=== PATIENT | male | born 2005 | race Two or more races ===

== ENCOUNTER 2024-08-03 16:35 | Emergency (ER) | payer OTHER ==
[~2024-08-03] VITALS: Ht 177.8 cm; Wt 78.0 kg
[2024-08-03 16:56] VITALS: PULSE 75; RESP 16; TEMP 98.6; O2SAT 98
[2024-08-03] MEDS: SODIUM CHLORIDE 0.9% 1,000 ML IV ONE (17:25)
[2024-08-03 17:33] LABS: Basophils # (auto) 0 10 ^3/uL (0-0.2); Basophils % (auto) 0.3 % (0.0-2.0); Eosinophils # (auto) 0 10 ^3/uL (0-0.8); Eosinophils % (auto) 0.5 % (0.0-7.0); Hematocrit 45.9 % (41.0-53.0); Hemoglobin 15.5 g/dL (13.5-17.5); Lymphocytes # (auto) 0.6 10 ^3/uL (0.4-5.4); Lymphocytes % (auto) 6.4 % (10.0-50.0); Mean Corpuscular Hemoglobin 28.9 pg (28.0-32.0); Mean Corpuscular Hgb Conc. 33.8 g/dL (32.0-36.0); Mean Corpuscular Volume 85.4 fL (80.0-100.0); Monocytes # (auto) 0.6 10 ^3/uL (0-1.3); Monocytes % (auto) 6.6 % (0.0-12.0); Neutrophils # (auto) 8.3 10 ^3/uL (1.6-8.6); Neutrophils % (auto) 86.2 % (37.0-80.0); Nucleated Red Blood Cells % 0.2 %; Platelet Count (auto) 257 10^3/uL (140-450); Red Blood Cells 5.37 10^6/uL (4.5-5.90); Red Cell Distribution Width 13.2 % (11.8-14.3); White Blood Cell 9.6 10^3/uL (4.4-10.8)
[2024-08-03 17:43] LABS: Chloride 104 mmol/L (98-107); Potassium 4.7 mmol/L (3.5-5.1); Sodium 137 mmol/L (136-145)
[2024-08-03 17:44] LABS: Anion Gap 9 (5-15); Carbon Dioxide 24 mmol/L (20-31)
[2024-08-03 17:49] LABS: Glucose 93 mg/dL (74-106)
[2024-08-03 17:50] LABS: BUN/Creatinine Ratio 12.9 (10.0-20.0); Blood Alcohol 3.6 mg/dL (<10); Blood Urea Nitrogen 17 mg/dL (9-23)
[2024-08-03 17:57] LABS: Calcium 10.5 mg/dL (8.7-10.4)
--- NOTE | 2024-08-03 18:13 | ED.PDOC ---
HPI (NEURO) HPI Comments 19 y.o male presents to the ED via EMS for an evaluation of an unwitnessed seizure episode today. Patient is unable to recall anything and all he can remember is being at work. Per triage note, patient was on the phone with girlfriend when seizure occurred. At this time no family or girlfriend is at bedside. Initially patient was post-ictal upon ED arrival but is now alert and oriented x 4. He reports one previous seizure 2 months ago and is in the process of being worked up by a neurologist. Patient does complain of a generalized headache and has positive oral trauma due to bitting the right side of his tongue. No chest pain, SOB, nausea, vomiting, vision changes, or dizziness reported. Patient denies any alcohol use but does use marijuana and vapes tobacco. Chief Complaint: Seizure Time Seen by MD: 17:05 Primary Care Provider: UNKNOWN Reviewed Notes: Nurses Notes, Pier Hand Helper Notes, Medications, Allergies Information Source: Patient Mode of Arrival: EMS Severity: Moderate Headache Severity: Moderate Duration: Since onset Seizure Location: Generalized Onset: At rest Circumstances: Spontaneous Before: Normal During: LOC After: Normal Mentation History of: Other (previosu one episode of seizure no hx) Associated Signs and Symptoms: Headache Past Medical History Past Medical History (Other): One Prior seizure Surgical History: Denies all surgeries Family History Family History: Reviewed,noncontributory to illness Social History Smoker: Cigarettes Alcohol: Denies ETOH Use Drugs: Marijuana Lives In: Home Constitutional: denies: chills, diaphoresis, fatigue, fever, malaise, sweats, weakness, others EENTM: denies: blurred vision, double vision, ear bleeding, ear discharge, ear drainage, ear pain, ear ringing, eye pain, eye redness, hearing loss, mouth pain, mouth swelling, nasal discharge, nose bleeding, nose congestion, nose pain, photophobia, tearing, throat pain, throat swelling, voice changes, others Respiratory: denies: cough, hemoptysis, orthopnea, SOB at rest, shortness of breath, SOB with excertion, stridor, wheezing, others Cardiovascular: denies: chest pain, dizzy spells, diaphoresis, Dyspnea on exertion, edema, irregular heart beat, left arm pain, lightheadedness, palpitations, PND, syncope, others Gastrointestinal: denies: abdomen distended, abdominal pain, blood streaked bowels, constipated, diarrhea, dysphagia, difficulty swallowing, hematemesis, melena, nausea, poor appetite, poor fluid intake, rectal bleeding, rectal pain, vomiting, others Genitourinary: denies: burning, dysuria, flank pain, frequency, hematuria, inco ntinence, penile discharge, penile sore, pain, testicle pain, testicle swelling, urgency, others Neurological: reports: headache, seizure; denies: dizziness, fainting, left sided numbness, left sided weakness, numbness, paresthesia, pre-existing deficit, right sided numbness, right sided weakness, speech problems, tingling, tremors, weakness, others Musculoskeletal: denies: back pain, gout, joint pain, joint swelling, muscle pain, muscle stiffness, neck pain, others Integumetry: denies: bruises, change in color, change in hair/nails, dryness, laceration, lesions, lumps, rash, wounds, others Allergic/Immunocompromised: denies: Difficulty Healing, Frequent Infections, Hives, Itching, others Hematologic/Lymphatic: denies: anemia, blood clots, easy bleeding, easy bruising, swollen glands, others Endocrine: denies: excessive hunger, excessive sweating, excessive thirst, excessive urination, flushing, intolerance to cold, intolerance to heat, unexplained weight gain, unexplained weight loss, others Psychiatric: denies: anxiety, bipolar disorder, depression, hopeless, panic disorder, schizophrenia, sleepless, suicidal, others All Other Systems: Reviewed and Negative Physical Exam General Appearance: No Apparent Distress HEENT: Other (Pupils symmetric, no facial asymmetry, superficial by wound right lateral aspect of tongue) Neck: Full Range of Motion, Non-Tender, Normal Inspection, Supple Respiratory: Lungs Clear, No Accessory Muscle Use, No Respiratory Distress, Normal Breath Sounds Cardiovascular: No Edema, No JVD, Regular Rate/Rhythm Breast Exam: Deferred Gastrointestinal: Non Tender, Soft Genitalia: Deferred Pelvic: Deferred Rectal: Deferred Extremities: Normal inspection, Normal range of motion, Non-tender, No pedal edema Neurologic: Alert (Oriented x4), Normal Affect, Normal Mood, Other (Moves all extremities. No gross focal deficit.) Cerebellar Function: NOT DONE Reflexes: NOT DONE Skin: Dry, Normal Color, Warm Lymphatic: NOT DONE EKG EKG : Comments Sinus rhythm, rate 68, normal intervals, normal axis, Q wave in lead three, otherwise normal QRS, nonspecific T change. Was a procedure done? Was a procedure done?: No Differential Diagnosis (SZ) Seizure: Psychogenic Seizure, Hypocalcemia, Hypoglycemia, Hyponatremia, Hypo xemia, Mass Lesion, Syncope, Encephalopathy, Epilepsy-Break Through, Epilepsy- Status CVA: Drug Overdose General Weakness: Dehydration, Electrolyte imbalance, TIA Headache: Migraine, Closed Head Injury, CVA, Epidural Hemorrhage, Intracerebral Hemorrhage, Subarachnoid Hemorrhage, Subdural Hemorrhage X-Ray, Labs, Meds, VS Vital Signs Date Time Temp Pulse Resp B/P (MAP) Pulse Ox O2 Delivery O2 Flow Rate FiO2 08/03/24 20:00 70 17 99/41 (60) 93 08/03/24 20:00 75 08/03/24 19:45 70 17 93 Room Air* 0 21 08/03/24 18:00 47 15 126/75 (92) 95 08/03/24 17:08 68 08/03/24 16:56 98.6 75 18 93/57 (69) 98 98.6 08/03/24 16:56 75 16 98 Room Air* 0 21 08/03/24 16:38 98.8 73 16 130/90 (103) 96 Lab Test 08/03/24 17:18 Range/Units White Blood Count 9.6 4.4-10.8 10^3/uL Red Blood Count 5.37 4.5-5.90 10^6/uL Hemoglobin 15.5 13.5-17.5 g/dL Hematocrit 45.9 41.0-53.0 % Mean Corpuscular Volume 85.4 80.0-100.0 fL Mean Corpuscular Hemoglobin 28.9 28.0-32.0 pg Mean Corpuscular Hemoglobin Concent 33.8 32.0-36.0 g/dL Red Cell Distribution Width 13.2 11.8-14.3 % Platelet Count 257 140-450 10^3/uL Mean Platelet Volume 8.3 6.9-10.8 fL Neutrophils (%) (Auto) 86.2 H 37.0-80.0 % Lymphocytes (%) (Auto) 6.4 L 10.0-50.0 % Monocytes (%) (Auto) 6.6 0.0-12.0 % Eosinophils (%) (Auto) 0.5 0.0-7.0 % Basophils (%) (Auto) 0.3 0.0-2.0 % Neutrophils # (Auto) 8.3 1.6-8.6 10 ^3/uL Lymphocytes # (Auto) 0.6 0.4-5.4 10 ^3/uL Monocytes # (Auto) 0.6 0-1.3 10 ^3/uL Eosinophils # (Auto) 0 0-0.8 10 ^3/uL Basophils # (Auto) 0 0-0.2 10 ^3/uL Nucleated Red Blood Cells 0.2 % Sodium Level 137 136-145 mmol/L Potassium Level 4.7 3.5-5.1 mmol/L Chloride Level 104 98-107 mmol/L Carbon Dioxide Level 24 20-31 mmol/L Anion Gap 9 5-15 Blood Urea Nitrogen 17 9-23 mg/dL Creatinine 1.32 H 0.700-1.30 mg/dL Glomerular Filtration Rate Calc 79 >90 mL/min BUN/Creatinine Ratio 12.9 10.0-20.0 Serum Glucose 93 74-106 mg/dL Calcium Level 10.5 H 8.7-10.4 mg/dL Troponin I High Sensitivity < 3 L </=54 ng/L Plasma/Serum Blood Alcohol 3.6 <10 mg/dL Current Medications Medications (Trade) Dose Ordered Sig/Riaz Route Start Time Stop Time Status Last Admin Sodium Chloride 1,000 ml @ 1,000 mls/hr Q1H ONCE IV 08/03/24 17:00 08/03/24 17:59 DC 08/03/24 17:25 Levetiracetam 100 ml @ 400 mls/hr ONCE ONCE IV 08/03/24 18:15 08/03/24 18:29 DC 08/03/24 18:29 Acetaminophen (Tylenol Tablet) 975 mg ONCE ONCE PO 08/03/24 18:45 08/03/24 18:46 DC 08/03/24 19:33 PROCEDURE(s): HWOCT - HEAD WITHOUT CONTRAST REASON: seizure ORDER NUMBER(s): [id number], ACCESSION NUMBER(s): [id number] EXAM: CT Head Without Intravenous Contrast CLINICAL INDICATION: seizure TECHNIQUE: Axial computed tomography images of the head/brain without intravenous contrast. This CT exam was performed using one or more of the [facility] dose reduction techniques: automated exposure control, adjustment of the mA and/or kV according to patient size, and/or use of iterative reconstruction technique. CONTRAST: COMPARISON: None FINDINGS: BRAIN AND EXTRA-AXIAL SPACES: Unremarkable. No hemorrhage. No significant white matter disease. No edema. No ventriculomegaly. BONES/JOINTS: Unremarkable. No acute fracture. SOFT TISSUES: Unremarkable. SINUSES: Unremarkable as visualized. No acute sinusitis. MASTOID AIR CELLS: Unremarkable as visualized. No mastoid effusion. OTHER FINDINGS: . None. . . .. IMPRESSION: No acute intracranial hemorrhage, midline shift or mass effect. X-Ray, Labs, Meds, VS Comment 19-year-old male with history of one prior seizure brought in by EMS after an unwitnessed seizure at home, complaining of a severe headache Vitals unremarkable Exam remarkable for a superficial bite wound on the right lateral aspect of the tongue CT head unremarkable CBC unremarkable, basic metabolic panel remarkable for creatinine 1.32, calcium 10.5, serum alcohol 3.6, UA and urine drug screen pending Patient treated with the following in the ED: 1 L 0.9 normal saline IV bolus, Tylenol 975 mg p.o., Toradol 30 mg IV, Keppra 1 g IV Patient was seizure free throughout his stay in the ED. On re-evaluation, headache has improved. Vitals were stable. Case discussed with Dr. Pablo at [facility]. They will not able to obtain MRI today at a [facility] facility. Recommendation was for the patient to be discharged on p.o. Keppra. [facility] will arrange to message the patient's neurologist to obtain close follow up. Authorization [id number] Patient and mother were advised regarding workup findings, my impression, treatment plan and follow up recommendations. They expressed understanding and agreed. Rx Keppra Time of 1ST Reevaluation: 18:09 Reevaluation 1ST: Unchanged Patient Education/Counseling: Diagnosis, Treatment Family Education/Counseling: No Family Present Departure 1 Departure Time of Disposition: 20:02 Impression: Primary Impression: Recurrent seizures Disposition: 01 HOME / SELF CARE / HOMELESS Condition: Stable Additional Instructions: Your blood tests were unremarkable. Your head CT was unremarkable. I have prescribed antiseizure medication as recommended by [facility]. You will be contacted for a close follow up with your neurologist. e-Prescriptions Levetiracetam (KEPPRA TABLET) 500 Mg Tb 500 MG PO BID, #60 TAB Prov: MALOU PATEL MD 08/03/24 Discharged With: Relative (Mother) Critical Care Note Critical Care Time?: No Stability Stability form required: No I personally scribed for MALOU PATEL MD ([email or web address]) on 08/03/24 at 18:13. Electronically submitted by Jesusita Sutton ([facility]). MALOU PATEL MD Aug 03, 2024 18:13
[2024-08-03] MEDS ORDERED: HYDROcodone-ACET 5/325MG TAB PO ONE (18:15)
[2024-08-03] MEDS: levETIRAcetam 1000 mg/100ml 100 ML IV ONE (18:29)
--- NOTE | 2024-08-03 19:05 | DVH ---
EXAM: CT Head Without Intravenous Contrast CLINICAL INDICATION: seizure TECHNIQUE: Axial computed tomography images of the head/brain without intravenous contrast. This CT exam was performed using one or more of the following dose reduction techniques: automated exposure control, adjustment of the mA and/or kV according to patient size, and/or use of iterative reconstru ction technique. CONTRAST: COMPARISON: None FINDINGS: BRAIN AND EXTRA-AXIAL SPACES: Unremarkable. No hemorrhage. No significant white matter disease. No edema. No ventriculomegaly. BONES/JOINTS: Unremarkable. No acute fracture. SOFT TISSUES: Unremarkable. SINUSES: Unremarkable as visualized. No acute sinusitis. MASTOID AIR CELLS: Unremarkable as visualized. No mastoid effusion. OTHER FINDINGS: . None. . . .. IMPRESSION: No acute intracranial hemorrhage, midline shift or mass effect.
[2024-08-03] MEDS: ACETAMINOPHEN 325 MG TAB PO ONE (19:33)
[2024-08-03 19:45] VITALS: PULSE 70; RESP 17; O2SAT 93
[2024-08-03 20:00] VITALS: BP 99/41; PULSE 75; RESP 17; O2SAT 93
[2024-08-03] MEDS: KETOROLAC TROMETH 30 MG/ML 1ML VIAL IV ONE (20:00)
[2024-08-03] MEDS ORDERED: KEP500T PO (20:43)
--- NOTE | 2024-08-03 21:11 | ECG ---
[facility] Test Date: 2024-08-03 Test Time: 17:08:48 Pat Name: OZZIE ENGLISH Department: ER Room: Gender: M Extension Course Coordinator: IC : 2005 Requested By: MALOU ERICKSON Order Number: [id number] Reading MD: Balaji Victor Measurements Intervals [place] Rate: 68 P: 67 [place]: 179 QRS: 81 QRSD: 102 T: 11 QT: 396 QTc: 422 Interpretive Statements Sinus rhythm Borderline Q waves in lateral leads ST elev, probable normal early repol pattern Electronically Signed On 08-06-2024 10:45:45 PST by Balaji Victor Please click the below link to view image of tracing.
== END 2024-08-03 21:10 | disposition home or self-care (01) ==
LOC: ER 16:35 → EDBD 16:35 → ER 21:10
DX: G40.909 Epilepsy, unspecified, not intractable, without status epilepticus (principal); F17.210 Nicotine dependence, cigarettes, uncomplicated
CPT/HCPCS: 36415; 70450; 80048; 80320; 84484; 85025; 93005; 96361; 96374; 99285; J1953; J7030

== ENCOUNTER 2024-10-24 22:15 | Emergency (ER) | payer OTHER ==
[~2024-10-24] VITALS: Ht 182.9 cm; Wt 91.0 kg
[2024-10-24 22:15] VITALS: BP 137/52; PULSE 65; RESP 24; TEMP 98; O2SAT 65
[~2024-10-24 22:15] MED LIST: KEP500T PO
--- NOTE | 2024-10-24 22:40 | ED.PDOC ---
HPI (NEURO) HPI Comments 19-year-old male who came to ER by EMS for seizures. Patient does have history of seizures, but has poor compliance to his medications. Patient had 3 witnessed seizures episodes today, tonic-clonic. Patient is still postictal at this time of care. No oral trauma or urinary incontinence noted. Chief Complaint: Seizure Time Seen by MD: 22:39 Primary Care Provider: UNKNOWN Reviewed Notes: Nurses Notes Information Source: Emergency Med Personnel Mode of Arrival: EMS Severity: Moderate Dizziness/Weakness Severity: Unable to do activities Headache Severity: Moderate Timing: Hours Duration: Intermittent Prehospital treatment: Oxygen Seizure Quality: Tonic-clonic Headache Quality: Throbbing, Aching Headache Location: Generalized Weakness Location: Generalized Numbness Location: Generalized Seizure Location: Generalized Onset: With light exertion Circumstances: Spontaneous Symptoms: Weakness Before: Normal During: LOC After: Confusion, Headache History of: Seizure Disorder Associated Signs and Symptoms: Altered Mental Status, Weakness Past Medical History PAST MEDICAL HISTORY: Seizures Surgical History: Pt Confused Family History Family History: Pt Confused Social History Smoker: Pt Confused Alcohol: Pt Confused Drugs: Pt Confused Lives In: Home Unable to Obtain due to: Altered Mental Status, Other (Patient postictal) Physical Exam General Appearance: No Apparent Distress, Normal HEENT: Normal ENT Inspection, Pharynx Normal, TMs Normal Neck: Full Range of Motion, Non-Tender, Normal, Normal Inspection Respiratory: Chest Non-Tender, Lungs Clear, No Accessory Muscle Use, No Respiratory Distress, Normal Breath Sounds Cardiovascular: No Edema, No JVD, No Murmur, No Gallop, Normal Peripheral P ulses, Regular Rate/Rhythm Breast Exam: Deferred Gastrointestinal: No Organomegaly, Non Tender, No Pulsatile Mass, Normal Bowel Sounds, Soft Genitalia: Deferred Pelvic: Deferred Rectal: Deferred Extremities: No calf tenderness, Normal capillary refill, Normal inspection, Normal range of motion, Non-tender, No pedal edema Musculoskeletal : Apperance: Normal Neurologic: Alert, yarn inspector II-XII nml as Tested, No Motor Deficits, Normal Affect, Normal Mood, No Sensory Deficits Cerebellar Function: Normal Reflexes: Normal Skin: Dry, Normal Color, Warm Lymphatic: No Adenopathy Was a procedure done? Was a procedure done?: No Differential Diagnosis (SZ) Seizure: Psychogenic Seizure, Hypoxemia, Idiopathic, Mass Lesion, Encephalopathy, Epilepsy-Break Through, Epilepsy-Status X-Ray, Labs, Meds, VS Vital Signs Date Time Temp Pulse Resp B/P (MAP) Pulse Ox O2 Delivery O2 Flow Rate FiO2 10/24/24 22:15 98.0 65 24 137/52 (80) 65 98.0 Current Medications Medications (Trade) Dose Ordered Sig/Riaz Route Start Time Stop Time Status Last Admin Levetiracetam 200 ml @ 400 mls/hr ONCE ONCE IV 10/24/24 22:30 10/24/24 22:59 DC 10/24/24 22:47 Time of 1ST Reevaluation: 22:37 Reevaluation 1ST: Unchanged Patient Education/Counseling: Diagnosis, Treatment, Other (Patient postictal) Family Education/Counseling: No Family Present Departure 1 Departure Time of Disposition: 23:47 (Patient returned to baseline patient has known his seizure disorder. Mom would like to take him home. We will discharge patient home with outpatient follow up) Impression: Primary Impression: Breakthrough seizure Disposition: 01 HOME / SELF CARE / HOMELESS Condition: Stable Referrals: JOAN PIMENTEL MD Additional Instructions: You had a breakthrough seizure today. It is important to take your seizure medication. You should stay well rested and well hydrated. You should follow up with your regular doctor within 1 week. If your symptoms worsen or you have any other concerns then please return to the emergency room. e-Prescriptions Levetiracetam (KEPPRA TABLET) 500 Mg Tb 500 MG PO BID, #60 TAB Prov: NIRMAL GARCES MD 10/24/24 Discharged With: Relative (Mother) Critical Care Note Critical Care Time?: No Stability Stability form required: No Heart Score Heart Score: Heart Score Response (Comments) Value History N/A 0 EKG N/A 0 Age N/A 0 Risk Factors N/A 0 Troponin N/A 0 Total 0 I personally scribed for NIRMAL GARCES MD ([email or web address]) on 10/24/24 at 22:40. Amberly ctronically submitted by Jean Salazar ([facility]). NIRMAL GARCES MD October 24, 2024 22:40
[2024-10-24] MEDS: levETIRAcetam 1000 mg/100ml 200 ML IV ONE (22:47)
[2024-10-24] MEDS ORDERED: KEP500T PO (23:49)
--- NOTE | 2024-10-26 12:51 | ECG ---
[facility] Test Date: 2024-10-24 Test Time: 22:16:37 Pat Name: OZZIE ENGLISH Department: ED Room: Gender: M Seismic Prospecting Observer Helper: anthony : 2005 Requested By: NIRMAL GARCES Order Number: [id number] Reading MD: Balaji Victor Measurements Intervals [place] Rate: 107 P: 66 [place]: 172 QRS: 64 QRSD: 93 T: 50 QT: 343 QTc: 458 Interpretive Statements Sinus tachycardia Baseline wander in lead(s) V2 Electronically Signed On 10-29-2024 20:32:01 PDT by Balaji Victor Please click the below link to view image of tracing.
== END 2024-10-25 00:01 | disposition home or self-care (01) ==
LOC: EDBD 22:15 → ER 22:17
DX: G40.909 Epilepsy, unspecified, not intractable, without status epilepticus (principal)
CPT/HCPCS: 93005; 96365; 99284; J1953

== ENCOUNTER 2025-03-28 15:12 | Emergency (ER) | payer OTHER ==
[~2025-03-28] VITALS: Ht 177.8 cm; Wt 77.0 kg
[2025-03-28 15:31] VITALS: PULSE 56; RESP 16; O2SAT 95
--- NOTE | 2025-03-28 15:44 | ECG ---
[facility] Test Date: 2025-03-28 Test Time: 15:37:58 Pat Name: OZZIE ENGLISH Department: ED Room: Gender: M Education Spec: : 2005 Requested By: PRATIBHA WILKINS Order Number: [id number] Reading MD: Measurements Intervals [place] Rate: 51 P: 30 [place]: 167 QRS: 51 QRSD: 109 T: 60 QT: 415 QTc: 383 Interpretive Statements Sinus rhythm ST elev, probable normal early repol pattern Please click the below link to view image of tracing.
[2025-03-28 16:17] LABS: Hematocrit 42.7 % (41.0-53.0); Hemoglobin 14.7 g/dL (13.5-17.5); Mean Corpuscular Hemoglobin 28.7 pg (28.0-32.0); Mean Corpuscular Volume 83.2 fL (80.0-100.0); Nucleated Red Blood Cells % 0.0 %
[2025-03-28 16:24] LABS: Chloride 104 mmol/L (98-107); Potassium 4.5 mmol/L (3.5-5.1); Sodium 140 mmol/L (136-145)
[2025-03-28 16:25] LABS: Anion Gap 13 (5-15); Carbon Dioxide 23 mmol/L (20-31)
[2025-03-28 16:26] LABS: Calcium 9.8 mg/dL (8.7-10.4)
[2025-03-28 16:30] LABS: BUN/Creatinine Ratio 9.6 (10.0-20.0); Blood Urea Nitrogen 13 mg/dL (9-23)
[2025-03-28 16:37] LABS: Glucose 136 mg/dL (74-106)
--- NOTE | 2025-03-28 16:42 | ED.PDOC ---
History of Present Illness HPI Comments This is a 19-year-old male who comes in with chief complaint of status post seizure today. According to the mother, they were at home and the patient had a seizure which lasted approximately 1-2 minutes. The seizure was described as tonic-clonic in nature. The patient denies any nausea, vomiting or diarrhea. The patient did not take his Keppra and then had a 2nd seizure. According to the mother, the patient has had seizures in the past. She states that he is currently being followed at [place]. P is somewhat noncompliant with his medications and he did use a vape today. Upon arrival, the patient was refusing most of the treatment. We put seizure precautions on the patient and then his mother arrived to convince him to receive care. Chief Complaint: Seizure Time Seen by MD: 15:41 Primary Care Provider: UNKNOWN Reviewed Notes: Nurses Notes, Field Return Repairer Notes, Medications, Allergies (No allergies to medications) Allergies: Coded Allergies: NO KNOWN ALLERGIES (Unverified , 08/03/24) Home Meds Active Scripts Levetiracetam (KEPPRA TABLET) 500 Mg Tb, 500 MG PO BID, #60 TAB Prov:NIRMAL GARCES MD 10/24/24 Information Source: Patient, Emergency Med Personnel Mode of Arrival: EMS Severity: Moderate Timing: Days Duration: Since onset Prehospital treatment: 12 Lead EKG, Stereo Equipment Installer Associated signs and symptoms Headache with them generalized weakness Past Medical History PAST MEDICAL HISTORY: Seizures Surgical History: Pt Confused Family History Family History: Pt Confused Social History Smoker: Pt Confused Alcohol: Pt Confused Drugs: Pt Confused Lives In: Home Constitutional: denies: chills, diaphoresis, fatigue, fever, malaise, sweats, weakness, others EENTM: denies: blurred vision, double vision, ear bleeding, ear discharge, ear drainage, ear pain, ear ringing, eye pain, eye redness, hearing loss, mouth pain, mouth swelling, nasal discharge, nose bleeding, nose congestion, nose pain, photophobia, tearing, throat pain, throat swelling, voice changes, others Respiratory: denies: cough, hemoptysis, orthopnea, SOB at rest, shortness of breath, SOB with excertion, stridor, wheezing, others Cardiovascular: denies: chest pain, dizzy spells, diaphoresis, Dyspnea on exertion, edema, irregular heart beat, left arm pain, lightheadedness, palpitations, PND, syncope, others Gastrointestinal: denies: abdomen distended, abdominal pain, blood streaked bowels, constipated, diarrhea, dysphagia, difficulty swallowing, hematemesis, melena, nausea, poor appetite, poor fluid intake, rectal bleeding, rectal pain, vomiting, others Genitourinary: denies: burning, dysuria, flank pain, frequency, hematuria, incontinence, penile discharge, penile sore, pain, testicle pain, testicle swelling, urgency, others Neurological: reports: headache, seizure; denies: dizziness, fainting, left sided numbness, left sided weakness, numbness, paresthesia, pre-existing deficit, right sided numbness, right sided weakness, speech problems, tingling, tremors, weakness, others Musculoskeletal: denies: back pain, gout, joint pain, joint swelling, muscle pain, muscle stiffness, neck pain, others Integumetry: denies: bruises, change in color, change in hair/nails, dryness, laceration, lesions, lumps, rash, wounds, others Allergic/Immunocompromised: denies: Difficulty Healing, Frequent Infections, Hives, Itching, others Hematologic/Lymphatic: denies: anemia, blood clots, easy bleeding, easy bruising, swollen glands, others Endocrine: denies: excessive hunger, excessive sweating, excessive thirst, excessive urination, flushing, intolerance to cold, intolerance to heat, unexplained weight gain, unexplained weight loss, others Psychiatric: denies: anxiety, bipolar disorder, depression, hopeless, panic disorder, schizophrenia, sleepless, suicidal, others Physical Exam General Appearance: Moderate Distress HEENT: Normal ENT Inspection, Pharynx Normal, TMs Normal Neck: Full Range of Motion, Non-Tender, Normal, Normal Inspection Respiratory: Chest Non-Tender, Lungs Clear, No Accessory Muscle Use, No Respiratory Distress, Normal Breath Sounds Cardiovascular: No Edema, No JVD, No Murmur, No Gallop, Normal Peripheral Pulses, Regular Rate/Rhythm Breast Exam: Deferred Gastrointestinal: No Organomegaly, Non Tender, No Pulsatile Mass, Normal Bowel Sounds, Soft Genitalia: Deferred Pelvic: Deferred Rectal: Deferred Extremities: No calf tenderness, Normal capillary refill, Normal inspection, Normal range of motion, Non-tender, No pedal edema Musculoskeletal : Apperance: Normal Neurologic: Alert, teacher's aide II-XII nml as Tested, No Motor Deficits, Normal Affect, Normal Mood, No Sensory Deficits Cerebellar Function: Normal Reflexes: Normal Skin: Dry, Normal Color, Warm Lymphatic: No Adenopathy Was a procedure done? Was a procedure done?: No Differential Dx Considerations may include: Seizure activity, generalized weakness, electrolyte imbalance X-Ray, Labs, Meds, VS Vital Signs Date Time Temp Pulse Resp B/P (MAP) Pulse Ox O2 Delivery O2 Flow Rate FiO2 03/28/25 17:23 66 16 109/48 03/28/25 15:37 51 03/28/25 15:31 98.3 57 18 106/60 (75) 95 98.3 03/28/25 15:31 56 16 95 Room Air* 0 21 03/28/25 15:22 97.8 70 16 138/82 96 97.8 Lab Test 03/28/25 16:06 Range/Units White Blood Count 13.9 H 4.4-10.8 10^3/uL Red Blood Count 5.13 4.5-5.90 10^6/uL Hemoglobin 14.7 13.5-17.5 g/dL Hematocrit 42.7 41.0-53.0 % Mean Corpuscular Volume 83.2 80.0-100.0 fL Mean Corpuscular Hemoglobin 28.7 28.0-32.0 pg Mean Corpuscular Hemoglobin Concent 34.5 32.0-36.0 g/dL Red Cell Distribution Width 13.1 11.8-14.3 % Platelet Count 249 140-450 10^3/uL Mean Platelet Volume 8.3 6.9-10.8 fL Neutrophils (%) (Auto) 88.0 H 37.0-80.0 % Lymphocytes (%) (Auto) 3.8 L 10.0-50.0 % Monocytes (%) (Auto) 7.9 0.0-12.0 % Eosinophils (%) (Auto) 0.1 0.0-7.0 % Basophils (%) (Auto) 0.2 0.0-2.0 % Neutrophils # (Auto) 12.2 H 1.6-8.6 10 ^3/uL Lymphocytes # (Auto) 0.5 0.4-5.4 10 ^3/uL Monocytes # (Auto) 1.1 0-1.3 10 ^3/uL Eosinophils # (Auto) 0 0-0.8 10 ^3/uL Basophils # (Auto) 0 0-0.2 10 ^3/uL Nucleated Red Blood Cells 0.0 % Sodium Level 140 136-145 mmol/L Potassium Level 4.5 3.5-5.1 mmol/L Chloride Level 104 98-107 mmol/L Carbon Dioxide Level 23 20-31 mmol/L Anion Gap 13 5-15 Blood Urea Nitrogen 13 9-23 mg/dL Creatinine 1.35 H 0.700-1.30 mg/dL Glomerular Filtration Rate Calc 77 >90 mL/min BUN/Creatinine Ratio 9.6 L 10.0-20.0 Serum Glucose 136 H 74-106 mg/dL Calcium Level 9.8 8.7-10.4 mg/dL Current Medications Medications (Trade) Dose Ordered Sig/Riaz Route Start Time Stop Time Status Last Admin Levetiracetam 100 ml @ 400 mls/hr ONCE ONCE IV 03/28/25 16:30 03/28/25 16:44 DC 03/28/25 16:44 Ondansetron HCl (Zofran) 4 mg ONCE ONCE IV 03/28/25 17:00 03/28/25 17:01 DC 03/28/25 17:22 Morphine Sulfate 4 mg ONCE ONCE IV 03/28/25 17:15 03/28/25 17:17 DC 03/28/25 17:23 The CBC is within normal limits. The chemistry panel shows a creatinine of 1.35 The patient will be signed out to Dr. Mendoza Images Reviewed?: Images reviewed and evaluated by me Time of 1ST Reevaluation: 17:54 Reevaluation 1ST: Unchanged Patient Education/Counseling: Diagnosis, Treatment, Prognosis Family Education/Counseling: No Family Present SEPSIS Sepsis Screen Date sepsis recognized/suspect: Mar 28, 2025 Time Sepsis recognized/suspect: 153 Recent Procedure: No On Antibiotic Therapy: No Respiratory Rate >20: No Heart Rate >90: No Temp<36 C (96.8 F) or >38.3 C: No SBP <90 or MAP <65 mmHG: No New Acute Mental Status Change: No Is the patient on CPAP, BIPAP,: No Physician Orders Urinalysis (03/28/25 15:45) Drug Screen (03/28/25 15:45) Heplock Iv (03/28/25 ) Seizure Precautions (03/28/25 ) Head Without Contrast (03/28/25 16:45) Vital Signs Date Time Temp Pulse Resp B/P (MAP) Pulse Ox O2 Delivery O2 Flow Rate FiO2 03/28/25 17:23 66 16 109/48 03/28/25 15:37 51 03/28/25 15:31 98.3 57 18 106/60 (75) 95 98.3 03/28/25 15:31 56 16 95 Room Air* 0 21 03/28/25 15:22 97.8 70 16 138/82 96 97.8 Laboratory Tests Test 03/28/25 16:06 White Blood Count 13.9 10^3/uL (4.4-10.8) H Medications Medications Dose Ordered Sig/Riaz Route Start Time Stop Time Status Last Admin Dose Admin Levetiracetam 100 ml @ 400 mls/hr ONCE ONCE IV 03/28/25 16:30 03/28/25 16:44 DC 03/28/25 16:44 Morphine Sulfate 4 mg ONCE ONCE IV 03/28/25 17:15 03/28/25 17:17 DC 03/28/25 17:23 Ondansetron HCl 4 mg ONCE ONCE IV 03/28/25 17:00 03/28/25 17:01 DC 03/28/25 17:22 Departure 1 Departure Time of Disposition: 18:00 Impression: Primary Impression: Breakthrough seizure Disposition: ADMITTED INPATIENT Admit to: Tele Condition: Fair Critical Care Note Critical Care Time?: Yes (45 min-critical care time only) Stability Stability form required: Yes Unstable for transfer: Telemetry monitoring (Telemetry monitoring required), ED Physician Assesment (Clinical assesment) Heart Score Heart Score: Heart Score Response (Comments) Value History N/A 0 EKG N/A 0 Age N/A 0 Risk Factors N/A 0 Troponin N/A 0 Total 0 PRATIBHA WILKINS MD Mar 28, 2025 16:42
[2025-03-28] MEDS: levETIRAcetam 1000 mg/100ml 100 ML IV ONE (16:44)
[2025-03-28] MEDS: HYDROcodone-ACET 5/325MG TAB PO ONE (16:59)
[2025-03-28] MEDS: MORPHINE SULFATE INJ 2 MG/ml SYRG IV ONE (17:15)
[2025-03-28] MEDS: ONDANSETRON HCL 4 MG/2 ML VIAL IV ONE (17:22)
[2025-03-28] MEDS: MORPHINE SULFATE 4 MG/ML SYR/VIAL IV ONE (17:23)
--- NOTE | 2025-03-28 18:24 | DVH ---
CT HEAD WITHOUT CONTRAST INDICATION: pain COMPARISON: CT HEAD WITHOUT CONTRAST on DOS: 08/03/24 TECHNIQUE: CT of the head without intravenous contrast. RADIATION DOSE: CTDIvol: 54 mGy, DLP: 864 mGy*cm FINDINGS: There is no evidence of acute intracranial hemorrhage, extra-axial collection, mass effect, midline s hift, herniation or hydrocephalus. The ventricles, sulci and cisterns are age appropriate. The jeffers -white differentiation is intact. The visualized paranasal sinuses and mastoid air cells are clear. The surrounding soft tissues and osseous structures are unremarkable. IMPRESSION: 1. No evidence of acute intracranial hemorrhage, mass effect or hydrocephalus.
[2025-03-28 19:27] VITALS: PULSE 60; RESP 15; O2SAT 96
[2025-03-28 20:00] VITALS: BP 103/59; PULSE 66; RESP 16; TEMP 98.2; O2SAT 97
== END 2025-03-28 20:43 | disposition left against medical advice (07) ==
LOC: ER 15:12 → EDBD 15:12 → ER 20:43
DX: G40.909 Epilepsy, unspecified, not intractable, without status epilepticus (principal); Z79.899 Other long term (current) drug therapy
CPT/HCPCS: 36415; 70450; 80048; 82947; 85025; 93005; 96365; 96375; 99285; J1953; J2270; J2405; 99291

== ENCOUNTER 2025-04-13 19:02 | Emergency (ER) | payer OTHER ==
[~2025-04-13] VITALS: Ht 177.8 cm; Wt 76.9 kg
[2025-04-13 19:05] VITALS: BP 126/83; PULSE 77; RESP 17; TEMP 98.9; O2SAT 99
--- NOTE | 2025-04-13 20:07 | ED.PDOC ---
History of Present Illness HPI Comments 20-year-old male presents to the ER with mother and with prior medical history of seizures and then chief complaint of mental health. Patient reports on taking Keppra consistently for one week and has been having mood changes such as rage, loss of memory, loss of coordination, and confusion. Mother reports that the patients 1st seizure was in May of 2024 in has been having them consistently afterwards, patient has not sign appointment with his psych physician. Patient is doses for Keppra is twice daily of 500 mg. Patient states I do not feel like myself. Patient denies HI/SI at this time. Social history of wax pen and Vape use. Denies any other symptoms at this time. De nies chills, fever, N/V/D, SOB, CP. No other associated symptoms, modifiers, recent injuries or sick contacts present at this time. REVIEW OF SYSTEMS: STATED IN HPI PHYSICAL EXAM: General: Awake, alert and oriented. No acute distress. Skin: Skin in warm, dry and intact without rashes or lesions. HEENT: The head is normocephalic and atraumatic. Conjunctivae are clear without exudates or hemorrhage. Sclera is non-icteric. EOMI Neck: Normal range of motion. No JVD. Cardiac: Regular rate Respiratory: No signs of respiratory distress. No Stridor. Extremities: Upper and lower extremities are atraumatic in appearance without deformity. Neurological: The patient is awake, alert and oriented to person, place, and time with normal speech. Speech is clear. There is no facial asymmetry. Normal Gait. Romberg negative. Normal [id number] test. Psychiatric: Appropriate mood and affect. Good judgement and insight. Chief Complaint: Mental Health Time Seen by MD: 20:05 Primary Care Provider: UNKNOWN Reviewed Notes: Nurses Notes, Medications, Allergies Allergies: Coded Allergies: NO KNOWN ALLERGIES (Unverified , 08/03/24) Home Meds Active Scripts Levetiracetam (KEPPRA TABLET) 500 Mg Tb, 500 MG PO BID, #60 TAB Prov:NIRMAL GARCES MD 10/24/24 Information Source: Patient Mode of Arrival: Ambulatory Severity: Moderate Timing: Came on: Suddenly Duration: Since onset Prehospital treatment: None Past Medical History PAST MEDICAL HISTORY: Seizures (Taking Keppra 2 times daily x500 mg) Surgical History: Unknown Family History Family History: Reviewed,noncontributory to illness, Unknown Social History Smoker: Other (Vape use) Alcohol: Denies ETOH Use Drugs: Other (Wax pen use) Lives In: Home Was a procedure done? Was a procedure done?: No Differential Dx Considerations may include: Differential diagnosis considered includes but not limited to medication side effect, intracranial hemorrhage, stroke, head injury, seizure, metabolic disturbance, electrolyte imbalance, infection, substance intoxication, psychiatric cause, other systemic illness, other X-Ray, Labs, Meds, VS Vital Signs Date Time Temp Pulse Resp B/P (MAP) Pulse Ox O2 Delivery O2 Flow Rate FiO2 04/13/25 19:05 98.9 77 17 126/83 99 98.9 Lab Test 04/13/25 21:23 04/13/25 20:33 Range/Units Urine Color Light-yellow Yellow Urine Clarity Clear Clear Urine pH 5.5 5.0-9.0 Urine Specific [place] 1.016 1.001-1.035 Urine Protein Negative Negative Urine Ketones Negative Negative Urine Blood Negative Negative /uL Urine Nitrite Negative Negative Urine Bilirubin Negative Negative Urine Urobilinogen Normal Negative mg/dL Urine Leukocyte Esterase Negative Negative /uL Urine RBC <1 0 - 3 /hpf Urine Microscopic WBC 1 0-3 /HPF Urine Squamous Epithelial Cells Few <5 /hpf Urine Bacteria None seen None Seen /hpf Urine Glucose Normal Normal mg/dL Urine Opiates Screen Neg NEGATIVE Urine Fentanyl Screen Neg NEGATIVE Urine Barbiturates Screen Neg NEGATIVE Urine Phencyclidine Screen Neg NEGATIVE Urine Amphetamines Screen Neg NEGATIVE Urine Benzodiazepines Screen Neg NEGATIVE Urine Cocaine Screen Neg NEGATIVE Urine Cannabinoids Screen Pos NEGATIVE White Blood Count 7.0 4.4-10.8 10^3/uL Red Blood Count 4.72 4.5-5.90 10^6/uL Hemoglobin 13.5 13.5-17.5 g/dL Hematocrit 40.0 L 41.0-53.0 % Mean Corpuscular Volume 84.8 80.0-100.0 fL Mean Corpuscular Hemoglobin 28.6 28.0-32.0 pg Mean Corpuscular Hemoglobin Concent 33.7 32.0-36.0 g/dL Red Cell Distribution Width 13.1 11.8-14.3 % Platelet Count 259 140-450 10^3/uL Mean Platelet Volume 8.5 6.9-10.8 fL Neutrophils (%) (Auto) 65.6 37.0-80.0 % Lymphocytes (%) (Auto) 21.3 10.0-50.0 % Monocytes (%) (Auto) 9.7 0.0-12.0 % Eosinophils (%) (Auto) 3.0 0.0-7.0 % Basophils (%) (Auto) 0.4 0.0-2.0 % Neutrophils # (Auto) 4.6 1.6-8.6 10 ^3/uL Lymphocytes # (Auto) 1.5 0.4-5.4 10 ^3/uL Monocytes # (Auto) 0.7 0-1.3 10 ^3/uL Eosinophils # (Auto) 0.2 0-0.8 10 ^3/uL Basophils # (Auto) 0 0-0.2 10 ^3/uL Nucleated Red Blood Cells 0.0 % Sodium Level 143 136-145 mmol/L Potassium Level 4.4 3.5-5.1 mmol/L Chloride Level 105 98-107 mmol/L Carbon Dioxide Level 28 20-31 mmol/L Anion Gap 10 5-15 Blood Urea Nitrogen 17 9-23 mg/dL Creatinine 1.15 0.700-1.30 mg/dL Glomerular Filtration Rate Calc 93 >90 mL/min BUN/Creatinine Ratio 14.8 10.0-20.0 Serum Glucose 77 74-106 mg/dL Calcium Level 9.9 8.7-10.4 mg/dL Plasma/Serum Blood Alcohol < 3.0 <10 mg/dL Time of 1ST Reevaluation: 20:35 Reevaluation 1ST: Unchanged Patient Education/Counseling: Other Family Education/Counseling: No Family Present SEPSIS Sepsis Screen Date sepsis recognized/suspect: Apr 13, 2025 Time Sepsis recognized/suspect: 1907 Recent Procedure: No On Antibiotic Therapy: No Respiratory Rate >20: No Heart Rate >90: No Temp<36 C (96.8 F) or >38.3 C: No SBP <90 or MAP <65 mmHG: No New Acute Mental Status Change: No Is the patient on CPAP, BIPAP,: No Physician Orders * Psychiatric Consult (04/13/25 02:21) Soc Telemed Psych Consult (04/13/25 19:59) Vital Signs Date Time Temp Pulse Resp B/P (MAP) Pulse Ox O2 Delivery O2 Flow Rate FiO2 04/13/25 19:05 98.9 77 17 126/83 99 98.9 Laboratory Tests Test 04/13/25 20:33 White Blood Count 7.0 10^3/uL (4.4-10.8) Departure 1 Departure Time of Disposition: 21:54 Impression: Primary Impression: Left against medical advice Disposition: 07 LEFT AGAINST MEDICAL ADVICE Condition: Other Critical Care Note Critical Care Time?: No Stability Stability form required: No I personally scribed for SERENE LAMBERT MD ([email or web address]) on 04/13/25 at 20:07. Electronically submitted by Johnson Allred ([email or web address]). SERENE LAMBERT MD Apr 13, 2025 20:07
[2025-04-13 20:56] LABS: Hematocrit 40.0 % (41.0-53.0); Hemoglobin 13.5 g/dL (13.5-17.5); Mean Corpuscular Hemoglobin 28.6 pg (28.0-32.0); Mean Corpuscular Volume 84.8 fL (80.0-100.0); Nucleated Red Blood Cells % 0.0 %
[2025-04-13 21:07] LABS: Chloride 105 mmol/L (98-107); Potassium 4.4 mmol/L (3.5-5.1); Sodium 143 mmol/L (136-145)
[2025-04-13 21:08] LABS: Anion Gap 10 (5-15); Calcium 9.9 mg/dL (8.7-10.4); Carbon Dioxide 28 mmol/L (20-31)
[2025-04-13 21:13] LABS: BUN/Creatinine Ratio 14.8 (10.0-20.0); Blood Urea Nitrogen 17 mg/dL (9-23); Glucose 77 mg/dL (74-106)
[2025-04-13 21:34] LABS: Urine Protein, UAD Negative (Negative)
[2025-04-13 21:43] LABS: Amphetamine Screen, Urine Neg (NEGATIVE); Barbiturate Scree,Urine Neg (NEGATIVE); Benzodiazephine Screen, Urine Neg (NEGATIVE); Cannabinoid Screen, Urine Pos (NEGATIVE); Cocaine Screen, Urine Neg (NEGATIVE); Opiate Scree,Urine Neg (NEGATIVE); Phencyclidine Screen, Urine Neg (NEGATIVE)
== END 2025-04-13 21:42 | disposition left against medical advice (07) ==
LOC: ER 19:03
DX: Z53.29 Procedure and treatment not carried out because of patient's decision for other reasons (principal); F17.290 Nicotine dependence, other tobacco product, uncomplicated; Z79.899 Other long term (current) drug therapy
CPT/HCPCS: 36415; 80048; 80307; 80320; 81001; 85025